=== PATIENT | male | born 1955 | race Caucasian/White ===

== ENCOUNTER → 2016-10-05 | Outpatient (CLI) | payer BC ==
[~2016-10-05] VITALS: Ht 165.1 cm; Wt 92.5 kg
[~2016-10-05] MED LIST: AZOR 10-40 MG1 EACH PO; CLONIDINE0.1 PO; MAXZIDE-25 MG1 EACH PO; OXYCODONE HCL10 MG PO; OXYCODONE HCL30 MG PO; PERCOCET 10-321 EAC1 PO; ROXICODONE5 M2 PO; ZANAFLEX4 MG PO; ZETIA10 MG PO
--- NOTE | ~2016-10-05 | HPC ---
[facility] [address] [place] [address] PAIN MANAGEMENT CONSULTATION Name: MARLA HAIR Room #: REG [facility] Misha.#: [id number] Admission: 10/05/16 Attend Phys: Jose Pennington DO Discharge: Date of : 53 Report #: [id number] THIS REPORT FOR: //name// CC: Jose Saez DO DATE OF SERVICE: 10/05/2016 CHIEF COMPLAINT: Low back pain and right knee pain. HISTORY OF PRESENT ILLNESS: As you know, the patient is a 61-year-old male who was referred to our service initially for assistance to come off of excessive high levels of opioids. He has done very well weaning off opioids nearly entirely, he is now taking a 10 mg oxycodone dose once to twice a day and this is working beneficially for pain control. At times, he is even able to reduce his dosing to 1 tab a day total. He has returned today in followup visit indicating no new injury, no new trauma, but is being evaluated for right knee symptoms secondary to meniscal tear. Overall, the patient states he is doing well, returning in followup visit requesting refill on his oxycodone. The last visit we saw the patient that was in January 2016. He is just now run low of his medication. He is doing appropriate things with the medication use and utilizing it in a judicious fashion. He denies any side effects to medication when he takes it. ALLERGIES: No known drug allergies. CURRENT MEDICATIONS: Sarika 10/40 one tab per day, triamterene/hydrochlorothiazide 37.5/25 mg once a day, Zetia 10 mg per day, tizanidine 4 mg 2 tabs p.o. at bedtime, and oxycodone 10/325 mg 1 tab p.o. q.8 hours p.r.n. for pain. SOCIAL HISTORY: The patient denies tobacco, IV or illicit drug use, admits to 10 alcoholic beverages per week. He is working in sales, working, not receiving workmen's compensation, unaccompanied today. PHYSICAL EXAMINATION: VITAL SIGNS: Blood pressure 131/76, pulse 64, respiratory rate 17 and unlabored, the patient is 97% on room air, height 5 feet 5 inches tall, weight 204 pounds, and BMI calculated 33.9. GENERAL: Well-developed, well-nourished, well-hydrated, exogenously obese 61-year-old male, appearing stated age, placing current pain score at approximately 4/10. HEENT: Normocephalic, atraumatic. Pupils are equal, round, and reactive to light. EXTREMITIES: Show no clubbing, no cyanosis, [place] [address] PAIN MANAGEMENT CONSULTATION Name: MARLA HAIR [id number] Admission: 10/05/16 Attend Phys: Jose Pennington DO Discharge: Date of : 53 Report #: [id number] MUSCULOSKELETAL: The patient does have some palpatory tenderness over the medial aspect of the right knee. Active and passive range of motion does cause intensification of pain in the medial compartment of the knee. No radiation of symptoms. Standing from a seated position exacerbates symptoms. There is palpatory tenderness over the lower lumbar spine, no spinous process tenderness. Ankle clonus negative. Babinski is negative. Muscle bulk and tone equal and symmetrical in lower extremities. ASSESSMENT: 1. Right knee pain. 2. Right knee meniscal injury. 3. Chronic neck pain. 4. Chronic low back pain. 5. Lumbar degeneration. 6. Chronic intractable pain. PLAN: 1. The patient returns today in followup visit where we have had a long discussion about treatment options for meniscal injuries. We discussed conservative treatment with medications, rest, and relaxation. We discussed physical therapy and surgical options. The patient is looking into surgical options at this time. He has orthopedic surgery following his case and we will defer to them for further evaluation and suggest treatment options. We did discuss new information about different injections that have been performed in the area, he can look into these options as well. 2. The patient has requested of our services to provide refill on oxycodone 10 mg dose, he is taking no more than 1-2 tabs per day. He has been doing very well with the medication, he has been able to extend his medication use over a very long period of time with using the medication judiciously. He is requesting refill on medication in hopes of improving pain when his pain becomes intense, he is not relying on the medication as he has in the past. We have agreed to provide the patient with a 1 month prescription of medications. We will see him back in followup visit at that time. 3. The patient was provided a prescription of Percocet 10/325 one tab p.o. q.12 hours p.r.n. for pain, I have given the patient #60 tablets. 4. The patient will return to our clinic on an as needed basis to discuss further treatment options for his knee pain, neck pain, and low back pain. We will see him back on an as needed basis. By: 0929 [id number] Jose Pennington, DO /nt
[2016-10-05 08:47] VITALS: BP 131/76
== END | disposition home or self-care (01) ==
LOC: PAIN 06:48
DX: S83.241A Other tear of medial meniscus, current injury, right knee, initial encounter (principal); M51.36 Other intervertebral disc degeneration, lumbar region; G89.29 Other chronic pain; M54.5 Low back pain; M54.2 Cervicalgia; Y99.8 Other external cause status; X58.XXXA Exposure to other specified factors, initial encounter; Y93.89 Activity, other specified; Y92.89 Other specified places as the place of occurrence of the external cause

== ENCOUNTER → 2018-04-04 | Outpatient (CLI) | payer BC, OTHER ==
[~2018-04-04] VITALS: Ht 165.1 cm; Wt 92.1 kg
[~2018-04-04] MED LIST changes: +ALLOPURINOL 30300 M1 PO; +SINGULAIR 10 MG10 M1 PO; +SYMBICORT160 MCG/4. INH
--- NOTE | ~2018-04-04 | HPC ---
[facility] [address] [place] [address] PAIN MANAGEMENT CONSULTATION Name: MARLA HAIR Room #: REG [facility] Misha.#: [id number] Admission: 04/04/18 Attend Phys: Miley Walton Discharge: Date of : 53 Report #: [id number] THIS REPORT FOR: //name// CC: Miley Saez DO DATE OF SERVICE: 04/04/2018 CHIEF COMPLAINT: Low back pain. HISTORY OF PRESENT ILLNESS: The patient returns to the pain clinic today for a followup for his opioid medications. He has decreased his medication significantly only averaging about half a pill on Tuesday and Tuesday. Last medication fill that we gave him was in September and the patient tries to use them sparingly. He tells me that he did have a flareup about 2 weeks ago in his lower back. It did not radiate down his legs, which is not normal for him. It was just in his lower back and a heating pad was very helpful, which that also is not normal. Usually, he does not help his lower back pain and his leg pain. The patient still complains of tenderness in his lower back and rates his pain today of 7/10. He is getting ready to go to [place], which he goes several weeks at a time to visit family and see his house down there and then he comes back, so he is hopeful that the warm weather will help his back pain also. Today, he is just requesting another refill of his OxyIR 10 mg. ALLERGIES: No known drug allergies. CURRENT LIST OF MEDICATIONS: Allopurinol 300 mg once daily, Singulair 10 mg at bedtime, OxyIR 10 mg very rare p.r.n. use, Symbicort daily, Sarika 10/40 daily, triamterene/hydrochlorothiazide 37.5/25 daily, Zetia 10 mg daily, tizanidine 4 mg at bedtime. PQRS: 1. History of osteoarthritis in his lower extremities and his back. The patient states he has rheumatoid arthritis in his upper extremities. 2. Height is 5 feet 5 inches, weight 203, BMI is 33.8. 3. Vital signs 128/69, pulse is 62, respirations 15, oxygen sat is 97%. 4. Pain score of 7/10. 5. Denies dizziness. Does not need help walking or standing and has not fallen in the last 3 months. 6. The patient is not on any blood thinners and does have a history of hypertension. 7. Opioid therapy greater than 6 weeks, yes. Opioid signed contract on the chart, yes. His risk assessment tool is low and his functional assessment is 16/70. 8. His recreational drug use: He states he has never smoked and occasionally [address] [address] PAIN MANAGEMENT CONSULTATION Name: LAXMIMARLA SUZIE Room #: REG CLI Sarah#: [id number] Admission: 04/04/18 Attend Phys: Miley Walton Discharge: Date of : 53 Report #: [id number] uses alcohol. We checked the [place] drug monitoring system. The patient found to have failed only one medication from Dr. Jose Pennington in September, which was our last script that was written. The patient tells me he does safeguard his medications. PHYSICAL EXAMINATION: GENERAL: This is a well-developed, well-nourished, well-hydrated, obese 63-year-old gentleman, appears his stated age, rating his pain score today of 7/10. HEENT: Normocephalic, atraumatic. Pupils equal, round, reactive to light. Extraocular muscles are intact. EXTREMITIES: No clubbing, no cyanosis, no edema. MUSCULOSKELETAL: Tenderness noted over his lower lumbar spine, raises from seated to standing without difficulty. Supine straight leg raising remains negative. His muscle strength is judged in his lower extremities to be 5/5 in all of his major muscle groups. ASSESSMENT: Chronic low back pain, lumbar degeneration, right knee osteoarthritis, chronic intractable pain. PLAN: 1. The patient returns today for refill of his OxyIR, says that he has been taking them very sparingly, usually about half a tablet on Tuesday and Tuesday. Therefore, his last fill was in September. He is requesting a refill at this time. The patient will be given a script for OxyIR 10 mg #60 with no additional refills to be released today. 2. The patient tells me that he will be going to [place] and if he feels like he needs an injection, he will have that done at that time when he is down there, but he will not get any medication filled from doctors there. I did remind him that our doctor would do an injection if need be, why he is here for a visit if he needs to be patient, will take this into consideration. The patient will be seen in followup as needed. 3. The patient is seen in collaboration with Dr. Jose Pennington. <ELECTRONICALLY SIGNED> By: Miley Walton 04/06/18 0934 [id number] Miley Walton /nt
[2018-04-04 09:35] VITALS: BP 128/69
== END ==
LOC: PAIN 06:18
DX: M51.36 Other intervertebral disc degeneration, lumbar region (principal); G89.4 Chronic pain syndrome; M17.11 Unilateral primary osteoarthritis, right knee

== ENCOUNTER → 2018-10-18 | Outpatient (CLI) | payer BC, OTHER ==
[~2018-10-18] VITALS: Ht 165.1 cm; Wt 92.3 kg
[~2018-10-18] MED LIST changes: +BREO ELLIPTA 11 EACH INH
[2018-10-18 09:40] VITALS: BP 119/69
--- NOTE | 2018-10-18 09:52 | NUR ---
Pain Clinic Assessment: 1. History of Osteoarthritis: SPINE WRIST FINGERS History of Rheumatoid Arthritis: DENIES 2. Height: 5 ft. 5 in. 165.1 cm. Weight: 203.4 lb. oz. 92.262 kg. Patient's BMI: 33.8 3. Vital Signs: BP: 119/69 Pulse: 74 Resp: 16 Temp: 02 Sat: 97 ECG Mon: 4. Pain Intensity: 7 5. Fall Risk: Dizziness: N Needs help standing or walking: N Fallen in the last 3 months: N Fall risk comments: 6. Patient on Blood Thinner: None 7. History of Hypertension: Y 8. Opioid Therapy greater than 6 weeks: Y Opiate Contract Signed: 12/02/15 9. Risk Assessment Tool Provided: Opioid Risk Tool 10. Functional Assessment Tool: 11. Recreational Drug Use: Never Drug Type: Tobacco Use: Never Smoker Tobacco Type: Amount or Packs/day: How Many Years: Alcohol Use: Yes Frequency: Weekly Quant:
--- NOTE | 2018-10-19 15:20 | HPC ---
[facility] [place] [address] PAIN MANAGEMENT CONSULTATION Name: MARLA HAIR Room #: REG Jennifer Ramos#: [id number] Admission: 10/18/18 ������������������ Attend Phys: Miley Walton Discharge: ������������������ Date of : 53 Report #: [id number] THIS REPORT FOR: //name// CC: Miley Saez DATE OF SERVICE: 10/18/2018 CHIEF COMPLAINT: Low back pain and right knee pain. HISTORY OF PRESENT ILLNESS: As you know, this is a very pleasant 63-year-old gentleman who returns to the Pain Clinic today for his medication refills. He currently uses the medication very sparingly trying to reduce his medicine to possibly off, but he is now taking only one tablet once a week, though he recently returned from a trip to [place] where he did lots of walking and had to take one tablet a day while he was on this vacation. He tells me therefore about out of his medications and needs a refill, though the last time he was here was in March and received this prescription. He tells me his pain score is a 7/10 today, mostly because he has not recovered from his trip. Normally it is much lower than that in his lower back. He tells me it is an achy pain and that the medications do help. He denies any problems with constipation or daytime sleepiness since he does take it on very sparingly use of this medicine. ALLERGIES: No known drug allergies. MEDICATIONS: Breo daily, OxyIR 10 mg p.r.n., allopurinol 300 mg daily, Sarika 10/40 daily, triamterene/hydrochlorothiazide 25 mg daily, Zetia 10 mg daily and Zanaflex 4 mg at bedtime. PQRS: 1. He has a history of osteoarthritis in his lower extremities and his spine and hands. He denies any rheumatoid arthritis. 2. Height is 5 feet 5 inches, weight is 203, BMI is 33. 3. Vital signs: Blood pressure 119/69, pulse is 74, respirations 16, oxygen sat is 97. 4. Pain score is 7/10. 5. Fall risk. Denies dizziness. Do not need help with walking or standing, has not fallen in the last 3 months. 6. The patient is not on any blood thinners. He does take medicine for hypertension. 7. Opiate therapy is greater than 6 weeks; therefore, an opioid signed contract is on the chart. His risk assessment tool is low. His functional assessment is 16/70. 8. Recreational drug use, he denies. He is not a smoker and does drink occasional alcohol. We did check the prescription monitoring system. The patient last filled his medication in March. We do [place] [address] PAIN MANAGEMENT CONSULTATION Name: MRALA HAIR Room #: REG CLJennifer Ramos#: [id number] Admission: 10/18/18 ������������������ Attend Phys: Miley Walton Discharge: ������������������ Date of : 53 Report #: [id number] the chart. PHYSICAL EXAMINATION: GENERAL: This is a well-developed, well-nourished, well-hydrated gentleman, appears his stated age, placing his pain score today at 7/10. HEENT: Normocephalic, atraumatic. Pupils equal, round and reactive to light. Extraocular eye muscles are intact. Mucous membranes are moist. EXTREMITIES: No clubbing, no cyanosis, no edema. MUSCULOSKELETAL: He does complain of some tenderness in his lumbar spine. He raises from sitting to standing without any difficulty. He walks with a slightly antalgic gait. His muscle strength in his lower extremities judged to be 5/5 in all major muscle groups. ASSESSMENT: 1. Chronic low back pain. 2. Lumbar degeneration. 3. Right knee osteoarthritis. 4. Chronic intractable pain. We reviewed the fact that opiate medications are being used to provide analgesia adequate to support activities of daily living, not attempting to achieve a specific pain score on the 0-10 Visual Analog Scale. The current opiate medications are providing sufficient analgesia to allow the patient to participate in activities of daily living. The patient is not exhibiting any aberrant behavior suggestive of drug diversion. The patient is not having any adverse reactions to medications. The patient is not suffering from daytime somnolence or mental acuity changes. The patient is managing opiate-induced constipation with appropriate [id number] agents and dietary considerations. The patient was counseled on concern for caution with operating a motor vehicle while using opiate medications. A physical exam was performed and the patient's functional status was evaluated. All patients with back pain were advised against the bed rest greater than 4 days and were advised to return to normal activities. Pain score assessment was noted and the treatment plan was reviewed with the patient. All current medications, both prescribed and OTC were reviewed and reconciled on the electronic medical record. Tobacco screening was accomplished and smoking cessation was advised when indicated. BMI was noted and diet/exercise modification was recommended for all patients following outside normal parameters. I reviewed with the patient today their responsibilities to safeguard prescription medications, reviewed their responsibility to utilize medications only as prescribed by the physician. They are to seek and receive pain medications only from 1 physician group ([facility]). They are to use 1 pharmacy and keep the clinic informed if they change pharmacies. Their [address] [address] PAIN MANAGEMENT CONSULTATION Name: MARLA HAIR Room #: REG [facility]#: [id number] Admission: 10/18/18 ������������������ Attend Phys: Miley Walton Discharge: ������������������ Date of : 53 Report #: [id number] responsibilities include making followup visits in a timely fashion and to avoid abrupt discontinuation of medication usage. Their responsibilities further include bringing their medications (bottles from the pharmacy with residual pills) to the visit for possible confirmation of pill counts and the patient understands it is their responsibility to submit to random drug screens to ensure both that the medications prescribed are present, and that no other controlled substances are present. All prescriptions provided today were generated electronically. PLAN: 1. We discussed treatment options with the patient today. The patient tells me he recently returned from [place] where he was needing to take one pain pill a day due to his increase of activity. He is still trying to get his pain under control from that trip. His last prescription fill was in March and requesting another fill today. I explained to the patient that that is okay to take one as needed when he is traveling like that and does have increased pain and now he will try to decrease back to his 1-2 tablets a week if needed. Scripts given today for OxyIR 10 mg #50 with no refills. 2. Dr. Weems did come and see the patient and collaborated care today and reiterated above. The patient will return to clinic on an as needed basis for prescription refill in approximately 5-6 months. ��������������������������������������������� <ELECTRONICALLY SIGNED> ���������������������������������������� By: Miley Walton ��������������������������������������������� 10/19/18 1520 [id number] 0001 Miley Walton /maria luisa
== END ==
LOC: PAIN 06:44
DX: Z76.0 Encounter for issue of repeat prescription (principal); M51.36 Other intervertebral disc degeneration, lumbar region; M17.11 Unilateral primary osteoarthritis, right knee; G89.4 Chronic pain syndrome

== ENCOUNTER → 2019-03-27 | Outpatient (CLI) | payer BC, OTHER ==
[~2019-03-27] VITALS: Ht 165.1 cm; Wt 98.0 kg
[2019-03-27 09:18] VITALS: BP 135/82
--- NOTE | 2019-03-27 09:29 | NUR ---
Pain Clinic Assessment: 1. History of Osteoarthritis: SPINE WRIST FINGERS History of Rheumatoid Arthritis: DENIES 2. Height: 5 ft. 5 in. 165.1 cm. Weight: 216.0 lb. oz. 97.977 kg. Patient's BMI: 35.9 3. Vital Signs: BP: 135/82 Pulse: 91 Resp: 20 Temp: 02 Sat: 97 ECG Mon: 4. Pain Intensity: 5 5. Fall Risk: Dizziness: N Needs help standing or walking: N Fallen in the last 3 months: N Fall risk comments: 6. Patient on Blood Thinner: None 7. History of Hypertension: Y 8. Opioid Therapy greater than 6 weeks: Y Opiate Contract Signed: 12/02/15 9. Risk Assessment Tool Provided: Opioid Risk Tool 10. Functional Assessment Tool: 28 11. Recreational Drug Use: Never Drug Type: Tobacco Use: Never Smoker Tobacco Type: Amount or Packs/day: How Many Years: Alcohol Use: Yes Frequency: Daily Quant:
--- NOTE | 2019-03-28 09:16 | HPC ---
[facility] [place] [address] PAIN MANAGEMENT CONSULTATION Name: MARLA HAIR [id number] Admission: 03/27/19 Attend Phys: Miley Walton Discharge: Date of : 53 Report #: [id number] THIS REPORT FOR: //name// CC: Miley Rivera DO DATE OF SERVICE: 03/27/2019 CHIEF COMPLAINT: Low back pain, right knee pain. HISTORY OF PRESENT ILLNESS: This is a very pleasant 64-year-old gentleman who returns to the pain clinic today for refill of his medications that he uses to help treat his ongoing low back pain and occasional right knee pain. Today, he reports a pain score 5/10. He reports that he is doing quite well on his occasional oxycodone. His last prescription of 50 pills lasted him 6 months, we see him about every 6 months for his medication refills. He reports that his pain is worse with activity, though he stays active working and has been on vacation several times it requires significant walking and was able to do quite well. His medication is very beneficial in these instances. He denies problems with constipation or daytime sleepiness because he tells he take them very sparingly. ALLERGIES: No known drug allergies. CURRENT LIST OF MEDICATIONS: OxyIR 10 mg b.i.d. p.r.n., Breo inhaler daily, allopurinol 300 mg daily, Sarika 10/40 daily, Maxzide 25 mg daily, Zetia 10 mg daily and tizanidine p.r.n. PATIENT'S PQRS: 1. He has a history of osteoarthritis in his lower extremities, spine and hands. Denies any rheumatoid arthritis. 2. Height is 5 feet 5 inches, weight is 203, BMI is 33. 3. Vital signs 119/69, pulse is 74, respirations 16, oxygen sat is 97. 4. Pain score is 7/10. 5. Denies dizziness, does not need help walking or standing, has not fallen in the last 3 months. 6. The patient is not on any blood thinners, but does take medicine for hypertension. Opioid therapy is greater than 6 weeks; therefore, an opioid signed contract is on the chart. His risk assessment tool is low. Functional assessment is . 7. Recreational drug use, he denies. He is not a smoker and occasionally drinks alcohol. According to the prescription monitoring system, the patient is filling [facility] [address] [place] [address] PAIN MANAGEMENT CONSULTATION Name: MARLA HAIR [id number] Admission: 03/27/19 Attend Phys: Miley Walton Discharge: Date of : 53 Report #: [id number] appropriately for his medications, last filled in September, when we did see him. PHYSICAL EXAMINATION: GENERAL: This is a well-developed, well-nourished 64-year-old gentleman who appears his stated age, placing his current pain score at 7/10. HEENT: Normocephalic, atraumatic. Extraocular eye muscles are intact. Mucous membranes are moist. EXTREMITIES: No clubbing, no cyanosis, no edema. MUSCULOSKELETAL: He has tenderness in his right knee today and tenderness across his paramuscular area of his lumbar spine. He rises from sitting to standing without any difficulty. He walks with a slightly antalgic gait. Lower extremity strength judged to be 5/5 in all major muscle groups. ASSESSMENT: 1. Chronic low back pain. 2. Lumbar degeneration. 3. Right knee osteoarthritis. 4. Chronic intractable pain. PLAN: 1. We discussed treatment options with the patient today. The patient finds his medications very beneficial. He is here for a refill of medication prior to going to [place] for [facility] and [place]. He does safeguard his meds at all time and uses his medications very sparingly. Scripts given today for OxyIR 10 mg #50, one script given only. This does afford him about 6 months of relief taking them very sparingly. 2. The patient falls under the CDC guidelines of less than 10 MME per day, thus very low dose. 3. The patient is seen in collaboration with Dr. Jose Pennington today who collaborated care as well. <ELECTRONICALLY SIGNED> By: Miley Walton 03/28/19 0916 [id number] Miley Walton /nt
== END ==
LOC: PAIN 06:43
DX: M51.36 Other intervertebral disc degeneration, lumbar region (principal); M17.11 Unilateral primary osteoarthritis, right knee; G89.4 Chronic pain syndrome

== ENCOUNTER → 2019-08-14 | Outpatient (CLI) | payer BC, OTHER ==
[~2019-08-14] VITALS: Ht 165.1 cm; Wt 97.2 kg
[~2019-08-14] MED LIST changes: +NABUMETONE 500500 M2 PO
[2019-08-14 09:24] VITALS: BP 174/100
--- NOTE | 2019-08-14 09:35 | NUR ---
Pain Clinic Assessment: 1. History of Osteoarthritis: SPINE WRIST FINGERS History of Rheumatoid Arthritis: DENIES 2. Height: 5 ft. 5 in. 165.1 cm. Weight: 214.2 lb. oz. 97.161 kg. Patient's BMI: 35.6 3. Vital Signs: BP: 174/100 Pulse: 95 Resp: 16 Temp: 02 Sat: 96 ECG Mon: 4. Pain Intensity: 8 5. Fall Risk: Dizziness: N Needs help standing or walking: N Fallen in the last 3 months: N Fall risk comments: 6. Patient on Blood Thinner: None 7. History of Hypertension: Y 8. Opioid Therapy greater than 6 weeks: Y Opiate Contract Signed: 12/02/15 9. Risk Assessment Tool Provided: Opioid Risk Tool 10. Functional Assessment Tool: 28 11. Recreational Drug Use: Never Drug Type: Tobacco Use: Never Smoker Tobacco Type: Amount or Packs/day: How Many Years: Alcohol Use: Yes Frequency: Daily Quant: [id number]
--- NOTE | 2019-08-16 09:02 | HPC ---
[facility] [address] [place] [address] PAIN MANAGEMENT CONSULTATION Name: MARLA HAIR Room #: REG [facility]..#: [id number] Admission: 08/14/19 Attend Phys: Miley Walton Discharge: Date of : 53 Report #: [id number] THIS REPORT FOR: cc: Lucian Saez Paul DO Hocker,Miley CAMERON ~ DATE OF SERVICE: 08/14/2019 CHIEF COMPLAINT: Low back pain, lumbar radiculopathy. HISTORY OF PRESENT ILLNESS: This is a very pleasant 64-year-old gentleman who returns to the pain clinic today for medication refill. He uses his oxycodone very sparingly to help treat his ongoing low back pain. Today, he is reporting that he "tweaked his back" in early May. Since that time, he has been having low back pain that radiates down bilateral legs to his feet. In May, it was quite severe. It has slightly eased, but he continues to have numbness and tingling as well as some neck pain that radiates to the top of his foot. He is wondering if he should get an MRI scheduled today to see what may be causing this low back pain. He reports that any activity increases his pain. He has been mostly sitting in his recliner, using heat and taking pain pills. ALLERGIES: No known drug allergies. CURRENT LIST OF MEDICATIONS: OxyIR 10 mg p.r.n., Breo, allopurinol, Sarika, Maxzide, Zetia, and tizanidine. PATIENT'S PQRS: 1. He has a history of osteoarthritis in his spine and wrists and hands. Denies rheumatoid arthritis. Height is 5 feet 5 inches, weight is 214, BMI is 35. 2. Vital signs: 174/100, pulse is 95, respirations 16, oxygen sat is 96. 3. Pain score is 8/10. 4. Denies dizziness, does not need help walking or standing, has not fallen in the last 3 months. 5. The patient is not on any blood thinners, but does have a history of hypertension. 6. Opioid therapy is greater than 6 weeks; therefore, an opioid signed contract is on the chart. Risk assessment tool is low. Functional assessment is 28/70. 7. Recreational drug use, he denies. He is not a smoker and occasionally drinks alcohol. According to the prescription monitoring system, the patient is filling appropriately, filling very sparingly since he takes not an average of 1 a day of his oxycodone [address] [place] [address] PAIN MANAGEMENT CONSULTATION Name: MARLA HAIR Room #: REG Jennifer Ramos#: [id number] Admission: 08/14/19 Attend Phys: Miley Walton Discharge: Date of : 53 Report #: [id number] PHYSICAL EXAMINATION: GENERAL: This is a well-developed, well-nourished 64-year-old gentleman who appears his stated age, placing his current pain score at 8/10. HEENT: Normocephalic, atraumatic. Extraocular eye muscles are intact. Mucous membranes are moist. MUSCULOSKELETAL: Pain that radiates from his lumbar spine following the L4-L5 and L5-S1 dermatomal distribution including numbness and tingling in the top of his foot greater on the right than the left, down the posterior leg, pain is elicited with standing as well as any external rotation and lateral tilt. He walks with a slightly antalgic gait. Lower extremity strength judged to be 5/5 in all major muscle groups. ASSESSMENT: 1. Chronic low back pain. 2. Lumbar degeneration. 3. Lumbar radiculopathy. 4. Right knee osteoarthritis. 5. Chronic intractable pain under opioid management and medications. PLAN: 1. We discussed treatment options with the patient today. The patient felt like he tweaked his back in early May, continues to have ongoing pain and is requesting an MRI. We discussed based on his insurance that we will obtain a plain AP and lateral lumbar spine series first. Depending on the findings, we will then possibly order an MRI in the future. The patient has not had an MRI since 2014. At that time, it does show that he has severe spinal stenosis and neural foraminal stenosis at these L4-L5 levels. 2. We did discuss sending him to physical therapy, but due to the COVID-19 virus and the limited options to some people currently since the physical therapy departments have closed, we will send him home with back exercises that are directed by our physician to do at home and we will also start him on nabumetone 500 mg 3 times a day to see if this would reduce some of his inflammation in his lumbar spine. 3. If we are able to obtain an MRI, we will do that in the future if need be or we will possibly schedule for a lumbar epidural steroid injection. We will need to seek authorization for this injection from his insurance company. So, we will await and see if the medication management has both been beneficial as well as his stretching exercises at home. 4. The patient instructed to call us in a week. Today, we will have Dr. Jose Pennington electronically send OxyIR 10 mg #50 to his pharmacy and I will send nabumetone 500 mg t.i.d., #90 with one additional refill. The patient is seen [facility] [address] [place] [address] PAIN MANAGEMENT CONSULTATION Name: MARLA HAIR Room #: ANTONIETTA Ramos#: [id number] Admission: 08/14/19 Attend Phys: Miley Walton Discharge: Date of : 53 Report #: [id number] in collaboration with Dr. Jose Pennington who did see the patient as well today and discussed care. <ELECTRONICALLY SIGNED> By: Miley Walton 08/16/19 [id number] Miley Walton /nt
== END ==
LOC: PAIN 06:42
DX: M47.26 Other spondylosis with radiculopathy, lumbar region (principal); M51.16 Intervertebral disc disorders with radiculopathy, lumbar region; M43.16 Spondylolisthesis, lumbar region; M25.78 Osteophyte, vertebrae; I70.0 Atherosclerosis of aorta; Z79.899 Other long term (current) drug therapy

== ENCOUNTER → 2020-03-18 | Outpatient (CLI) | payer BC, OTHER ==
[~2020-03-18] VITALS: Ht 165.1 cm; Wt 92.8 kg
[~2020-03-18] MED LIST changes: +RELAFEN500 M1 PO
[2020-03-18 09:02] VITALS: BP 123/79
--- NOTE | 2020-03-18 09:12 | NUR ---
Pain Clinic Assessment: 1. History of Osteoarthritis: SPINE WRIST FINGERS History of Rheumatoid Arthritis: DENIES 2. Height: 5 ft. 5 in. 165.1 cm. Weight: 204.6 lb. oz. 92.806 kg. Patient's BMI: 34.0 3. Vital Signs: BP: 123/79 Pulse: 80 Resp: 20 Temp: 02 Sat: 98 ECG Mon: 4. Pain Intensity: 4 5. Fall Risk: Dizziness: N Needs help standing or walking: Y Fallen in the last 3 months: Y Fall risk comments: 6. Patient on Blood Thinner: None 7. History of Hypertension: Y 8. Opioid Therapy greater than 6 weeks: Y Opiate Contract Signed: 12/02/15 9. Risk Assessment Tool Provided: Opioid Risk Tool 10. Functional Assessment Tool: 28 11. Recreational Drug Use: Never Drug Type: Tobacco Use: Never Smoker Tobacco Type: Amount or Packs/day: How Many Years: Alcohol Use: Yes Frequency: Quant:
--- NOTE | 2020-03-18 14:12 | HPC ---
[facility] [place] [address] PAIN MANAGEMENT CONSULTATION Name: MARLA HAIR Room #: REG Jennifer Richard#: [id number] Admission: 03/18/20 Attend Phys: Miley Walton Discharge: Date of : 53 Report #: [id number] CC: Miley CAMERON Ryan Lee Ann Pennington DO DATE OF SERVICE: 03/18/2020 CHIEF COMPLAINT: Low back pain, lumbar radiculopathy. HISTORY OF PRESENT ILLNESS: This is a pleasant 65-year-old gentleman who returns to the pain clinic today for a refill of his medications and discuss his ongoing weakness in his lower extremity. The patient does report he has been falling so he is using a cane at all times. His pain is located in his lower back and his left leg. He is experiencing increasing numbness, rating his pain at a 4/10. He believes that his pain is worse with walking and standing, though he does find his oxycodone very beneficial. He does occasionally take his Relafen as well, but finds that is most beneficial on his arthritic hands. Today, he is requesting refills of his medication. The patient does report at this time, he is not interested in having surgery. However he is going to seek out a second opinion of a surgeon in [place], [place] when he goes to see family next week. He has seen Dr. Hagen in the past at [facility] who encouraged him to have surgery. Again, the patient is wanting to hold off as long as possible. ALLERGIES: No known drug allergies. CURRENT MEDICATIONS: Nabumetone 500 mg b.i.d. p.r.n., OxyIR 10 mg p.r.n., allopurinol, Sarika, Maxzide, Zetia, tizanidine, gabapentin 100 mg t.i.d. PQRS: 1. He has arthritic changes in his spine and wrists and hands. Denies rheumatoid arthritis. 2. Height is 5 feet 5 inches, weight is 204, BMI is 34, which is a decrease of 10 pounds since our last visit in July. 3. Vital signs; blood pressure 123/79, pulse is 80, respirations 20, oxygen sat is 98%. 4. Pain score is 4/10. 5. Denies dizziness. Does use assistance with walking, uses a cane. Reports has fallen in the last 3 months with no injuries. 6. The patient is not on any blood thinners, but does take medicine for hypertension. 7. Opioid therapy is greater than 6 weeks; therefore, an opioid signed contract is on the chart. Risk assessment is low. Functional assessment is of 2870. 8. Recreational drug use, he denies. He is not a smoker and occasionally drinks alcohol. According to the prescription monitoring system, the patient is filling very sparingly. His last prescription fill was in July. He does not take opioids on a daily basis. PHYSICAL EXAMINATION: GENERAL: This is alert and orientated 65-year-old gentleman who appears his stated age. He is well-nourished, well-hydrated, exogenous obese, placing his pain score at 4/10. HEENT: Normocephalic, atraumatic. Pupils equal, round and reactive to light. Wearing a mask. EXTREMITIES: No clubbing, no cyanosis, no edema. MUSCULOSKELETAL: He has tenderness over the paraspinal musculatures of his lumbar spine. Straight leg raising is positive on the left. Modified Gaenslen is positive for axial low back pain. Pain is elicited from this with standing from the seated position using a cane for ambulation and has an antalgic gait. ASSESSMENT: 1. Chronic low back pain. 2. Lumbar radiculopathy. 3. Lumbar degeneration. 4. Chronic intractable pain. 5. Medication management utilizing scheduled medications. PLAN: 1. We discussed treatment options with the patient today. I encouraged the patient to seek surgical options. He reports Dr. Hagen has encouraged surgery. We did explain that he is having continually decreasing function in his left lower extremity: The importance of not prolonging surgery and encouraging him to have the surgery in [place] when he does have his second opinion where his family can help care for him. Again, stressing the importance of not prolonging the surgery to the point of permanent nerve damage. He feels that the gabapentin has been slightly beneficial. I explained that he is on a low dose of this medication that his primary care doctor may need to increase. Again reiterating that surgery may be the most beneficial option. 2. We did discuss his oxycodone. The patient takes these very sparingly. We provide him 50 tablets that typically lasts him about 6 months. We will send electronically this prescription with a second prescription to be allowed in 4-6 weeks. These will be sent by Dr. Jose Pennington who is collaborating care. 3. The patient takes his nabumetone 500 mg daily. He finds it is beneficial in helping with some of his arthritic issues of his hands. I encouraged him that he may take it up to 3 times a day, especially on more painful days, quantity 90 was sent with one additional refill, but I also encouraged the patient to make sure he is taking it with meals. 4. We encouraged the patient to keep us apprised of any surgeries that he may have performed in [place] when he is there for the next 3 months. <ELECTRONICALLY SIGNED> By: Miley Walton 03/18/20 1412 [id number] Miley Walton /maria luisa
== END ==
LOC: PAIN 06:52
PROVIDERS: ATTEND Clinical Nurse Specialist Adult Health
DX: M51.16 Intervertebral disc disorders with radiculopathy, lumbar region (principal); G89.4 Chronic pain syndrome; Z79.891 Long term (current) use of opiate analgesic

== ENCOUNTER → 2020-09-09 | Outpatient (CLI) | payer BC, OTHER ==
[~2020-09-09] VITALS: Ht 165.1 cm; Wt 93.8 kg
[2020-09-09 09:07] VITALS: BP 139/82
--- NOTE | 2020-09-09 09:17 | NUR ---
Pain Clinic Assessment: 1. History of Osteoarthritis: SPINE WRIST FINGERS History of Rheumatoid Arthritis: DENIES 2. Height: 5 ft. 5 in. 165.1 cm. Weight: 206.8 lb. oz. 93.804 kg. Patient's BMI: 34.4 3. Vital Signs: BP: 139/82 Pulse: 90 Resp: 18 Temp: 02 Sat: 97 ECG Mon: 4. Pain Intensity: 7 5. Fall Risk: Dizziness: N Needs help standing or walking: Y Fallen in the last 3 months: Y Fall risk comments: 6. Patient on Blood Thinner: None 7. History of Hypertension: Y 8. Opioid Therapy greater than 6 weeks: Y Opiate Contract Signed: 12/02/15 9. Risk Assessment Tool Provided: Opioid Risk Tool 10. Functional Assessment Tool: 42 11. Recreational Drug Use: Never Drug Type: Tobacco Use: Never Smoker Tobacco Type: Amount or Packs/day: How Many Years: Alcohol Use: Yes Frequency: Daily Quant: [place] 2-3 A DAY
--- NOTE | 2020-09-09 14:56 | HPC ---
[facility] [place] [address] PAIN MANAGEMENT CONSULTATION Name: MARLA HAIR Room #: REG [facility] Richard#: [id number] Admission: 09/09/20 Attend Phys: Miley Walton Discharge: Date of : 53 Report #: [id number] THIS REPORT FOR: cc: Ryan Nance MD, Dean L. MD Hocker,Miley CAMERON ~ DATE OF SERVICE: 09/09/2020 CHIEF COMPLAINT: Low back pain and lumbar radiculopathy. HISTORY OF PRESENT ILLNESS: This is a very pleasant 65-year-old gentleman who returns to the pain clinic today for refill of his medications that he uses to take for his ongoing low back pain. Today, the patient reports he is having some slight weakness in his left leg, though he has not fallen. He does utilize a cane now periodically, especially as he is walking longer distances. Today, the patient is reporting a pain score of 7/10 and achy sensation in his low back and burning in his hands per his report. His pain is exacerbated by walking long distances and standing for prolonged periods of time. Overall, he believes occasional oxycodone has been beneficial in helping reduce his pain as well as taking his nabumetone. The patient would like refills of his medication today. The patient has seen a surgeon when he was in [place] over the winter. He agreed with the surgeon's report here in [place] that he does need surgery. The patient is trying to prolong surgery as long as possible. His plan is to retire in November and moves permanently to [place]. At that time, he will consider having his surgery. Until then he would like to continue his pain medication. ALLERGIES: No known drug allergies. CURRENT LIST OF MEDICATIONS: OxyIR 10 mg p.r.n., nabumetone, allopurinol, amlodipine, olmesartan, triamterene/hydrochlorothiazide, Zetia and Zanaflex. PQRS: 1. He has osteoarthritic changes in his spine, hands and wrists. Denies any rheumatoid arthritis. 2. Height is 5 feet 5 inches, weight is 206, BMI is 34. 3. Vital signs 139/82, pulse is 90, respirations 18, oxygen sat is 97%. 4. Pain score is 7/10. 5. Denies dizziness. Does use assistance with ambulation. Has a cane at times and has fallen in the last 3 months. 6. The patient is not on any blood thinners. He does have a history of hypertension. His opioid therapy is greater than 6 weeks; therefore, an opioid signed contract is on the chart. Risk assessment is low. Functional assessment is 42/70. 7. Recreational drug use, he denies. He is not a smoker and has alcohol every day. [address] [address] PAIN MANAGEMENT CONSULTATION Name: MARLA HAIR SUZIE Room #: REG [facility].#: [id number] Admission: 09/09/20 Attend Phys: Miley Walton Discharge: Date of : 53 Report #: [id number] According to the prescription monitoring system, he is filling appropriately. He has not filled any medications in several months due to his very sparingly use. His MME is 15 or less per day. PHYSICAL EXAMINATION: GENERAL: This is alert and orientated 65-year-old gentleman who appears his stated age. He is well-developed, well-nourished, exogenous obese, placing his current pain score today at 7/10. HEENT: Normocephalic, atraumatic. Pupils equal, round and reactive to light. He is wearing a mask today. EXTREMITIES: No clubbing, no cyanosis, no edema. MUSCULOSKELETAL: Positive straight leg raising on the left. Modified Gaenslen's is positive for axial low back pain. Slight weakness in the lower left extremity than compared to the right of 4/5. Tenderness in the paraspinal musculature of his lumbar spine. He is using a cane with ambulation and has an antalgic gait. IMPRESSION: 1. Chronic low back pain. 2. Lumbar radiculopathy. 3. Lumbar degeneration. 4. Chronic intractable pain. 5. Medication management utilizing scheduled medications. PLAN: 1. We discussed treatment options with the patient today. We will continue him on his current medications of OxyIR 10 mg, utilizing this very sparingly 100 tablets typically last him [address] Jose Pennington will send 2 prescriptions of 50 tablets each to his pharmacy electronically. 2. I will continue him on nabumetone 500 mg t.i.d., #90 with one additional refill. The patient finds these beneficial in helping his arthritic changes in his hands and back. 3. The patient will be moving in November. He is hopeful to see us one final time prior to this move and then will schedule a surgery with the surgeon in [place]. Time spent in consultation reviewing pertinent imaging, reviewing recent studies and clinical notes and physician reports, physical examination and correlation of findings and medical documentation to determine possible treatments 14 minutes. Time spent in preparation for appointment reviewing, prescription monitoring system, reviewing previous records and proposed treatment options and reviewing current medications 5 minutes. [facility] [address] [place] [address] PAIN MANAGEMENT CONSULTATION Name: MARLA HAIR Room #: REG [facility].#: [id number] Admission: 09/09/20 Attend Phys: Miley Walton Discharge: Date of : 53 Report #: [id number] Time spent preparing and sending electronic prescriptions with collaborating physician, Dr. Jose Pennington, documentation of visit and plan of treatment 6 minutes. Total time spent 25 minutes. <ELECTRONICALLY SIGNED> By: Miley Walton 09/09/20 1456 [id number] Miley Walton /nt
== END ==
LOC: PAIN 08:26
PROVIDERS: ATTEND Clinical Nurse Specialist Adult Health
DX: M51.16 Intervertebral disc disorders with radiculopathy, lumbar region (principal); G89.4 Chronic pain syndrome; Z79.891 Long term (current) use of opiate analgesic; Z79.899 Other long term (current) drug therapy